=== PATIENT | female | born 1960 | race African-American/Black ===

== ENCOUNTER 2020-05-17 15:49 | Emergency (ER) | payer MEDICAID, OTHER ==
[2020-05-17] MEDS ORDERED: SODIUM CHLORIDE 0.9% 1000ML 1,000 ML IVS ONE (16:13)
[2020-05-17] MEDS ORDERED: VANCOMYCIN HCL INJ 1,000 MG in SODIUM CHLORIDE 0.9% 250ML 250 ML IVPB ONE (16:55)
[2020-05-17] MEDS ORDERED: PIPERACILLIN/TAZOBACTAM 4.5 GM in SODIUM CHLORIDE 0.9% 100ML 100 ML IVPB ONE (16:55)
--- NOTE | 2020-05-17 17:06 | ED.PDOC ---
History of Present Illness - General Chief Complaint: GI Problem Stated Complaint: rectal bleed Time Seen by Provider: 05/17/20 16:11 Additional Information: 59yo F presents from nursing facility with acute GI bleeding. Patient is medically complex including TBI, Hep C, DM, CVA, COPD, CHF, substance abuse and psych disorder. She is trached and poorly responsive at baseline per EMS report. Apparently, a full code. Per EMS, jail staff noted bight red blood in her diaper. EMS reports additional bleeding in route. Pt has remained normotensive during transport. No known hx of blood thinners per review of available documents and EMS report. No known hx of GI bleeding per available information. No report of recent illness. No other reported issues. Review of Systems - Review of Systems Unable to Obtain Due To: condition, dementia Family Medical History - Family History Mother Family History: No Known Physical Exam - Physical Exam General Appearance: Frail, Lethargic, Other - Distressed due to condition Eyes, Ears, Nose, Throat Exam: PERRL/EOMI, normal ENT inspection Neck: non-tender, supple Respiratory: lungs clear, normal breath sounds, other - Trach in place Cardiovascular/Chest: normal peripheral pulses, regular rate, rhythm, no edema Peripheral Pulses: No deficit Gastrointestinal/Abdominal: normal bowel sounds, soft, no organomegaly Rectal Exam: other - Grossly bloody stools Back Exam: normal inspection Extremity: non-tender, no pedal edema Neurologic: no motor/sensory deficits, other - Wakes to voice, poorly responsive to commands, no verbal communication. Skin Exam: normal color, warm/dry Progress - Progress Progress: DDX: GI bleed, anemia, renal failure, lyte disorder, hyperglycemia, hemorrhage, Sepsis, UTI, pneumonia, cirrhosis, trach complication, mass, varices. Airborne+ PPE used Patel Radha, 444 Critical Care: Unstable vital signs, life threatening condition, multiple conditions. 34 Minutes of care. 05/17/20 18:54 Critically ill. Pt with massive GI bleeding. Became hypotensive, blake-arrest. Hgb 6. IV access obtained via ultrasound guidance. A R femoral like was also placed under ultrasound guidance. Emergency transfusion was initiated. Pt additionally found to be in renal failure, hypernatremic and WBC 17 possibly representing infection. Sepsis protocol was also initiated. Requires higher level of care. Case discussed with ED physician on duty at [facility]. Accepts case. Initially asked for air ambulance, but not currently avail via two services due to weather. Pt left ED via ground EMS. 05/18/20 01:24 - Results/Orders Results/Orders: 05/17/20 16:05 TYPE AND SCREEN Stat 05/17/20 16:15 EKG STAT 05/17/20 16:56 BLOOD CULTURE Stat Laboratory Results - last 24 hr 05/17/20 05/17/20 05/17/20 16:05 16:05 16:05 WBC 17.9 H RBC 2.02 L Hgb 6.6 L* Hct 19.3 L MCV 95.6 MCH 32.5 H MCHC 34.0 RDW 19.6 H Plt Count 116 L MPV 9.4 Absolute Neuts (auto) 13.70 H Absolute Lymphs (auto) 2.40 Absolute Monos (auto) 1.20 H Absolute Eos (auto) 0.40 Absolute Basos (auto) 0.10 Neutrophils % 76.7 Lymphocytes % 13.7 L Monocytes % 6.9 Eosinophils % 2.1 Basophils % 0.6 Normal RBC Morphology Stain quality accept PT 13.2 H INR 1.33 H PTT (SP) Not Reportable Sodium 160 H* Potassium 2.7 L Chloride 110 Carbon Dioxide 30 Anion Gap 22.7 H BUN 379 H* Creatinine 3.50 H BUN/Creatinine Ratio 108.3 H Random Glucose 370 H Serum Osmolality Not Reportable Lactic Acid Calcium 9.5 Total Bilirubin 0.5 AST 65 H ALT 17 Alkaline Phosphatase 114 Serum Total Protein 8.4 H Albumin 1.1 L* Globulin 7.3 H Albumin/Globulin Ratio 0.2 L Patient ABO/Rh Antibody Screen Crossmatch 05/17/20 05/17/20 05/17/20 16:05 16:05 16:05 WBC RBC Hgb Hct MCV MCH MCHC RDW Plt Count MPV Absolute Neuts (auto) Absolute Lymphs (auto) Absolute Monos (auto) Absolute Eos (auto) Absolute Basos (auto) Neutrophils % Lymphocytes % Monocytes % Eosinophils % Basophils % Normal RBC Morphology PT INR PTT (SP) Sodium Potassium Chloride Carbon Dioxide Anion Gap BUN Creatinine BUN/Creatinine Ratio Random Glucose Serum Osmolality Lactic Acid 5.6 H* Calcium Total Bilirubin AST ALT Alkaline Phosphatase Serum Total Protein Albumin Globulin Albumin/Globulin Ratio Patient ABO/Rh Cancelled O POSITIVE Antibody Screen Cancelled Negative Crossmatch See Detail 05/17/20 17:27 WBC RBC Hgb Hct MCV MCH MCHC RDW Plt Count MPV Absolute Neuts (auto) Absolute Lymphs (auto) Absolute Monos (auto) Absolute Eos (auto) Absolute Basos (auto) Neutrophils % Lymphocytes % Monocytes % Eosinophils % Basophils % Normal RBC Morphology PT INR PTT (SP) Sodium Potassium Chloride Carbon Dioxide Anion Gap BUN Creatinine BUN/Creatinine Ratio Random Glucose Serum Osmolality Lactic Acid Calcium Total Bilirubin AST ALT Alkaline Phosphatase Serum Total Protein Albumin Globulin Albumin/Globulin Ratio Patient ABO/Rh Antibody Screen Crossmatch See Detail Last Vital Signs Temp 96.5 F L 05/17/20 18:00 Pulse 78 05/17/20 18:00 Resp 16 05/17/20 18:00 BP 105/67 05/17/20 18:00 Pulse Ox 98 05/17/20 18:00 - EKG/XRAY/CT EKG: Nicolás - 30, nl axis, nl intervals, nonspecific ST T wave Chg Comments: EKG obtained during hypotension episode. HR normalized with volume resus. Procedures - Central Line Right Femoral vein Central Line Lumen: triple Central Line Procedure Prep: betadine prep, sterile drapes applied, sterile dressing applied Anesthesia: Lidocaine cc's of anesthesia: 2 Complications: none Central Line Post Position: sutured, good blood return, position confirmed w/ CXR Progress: Placed with ultrasound guidance. Well tolerated without complication. Departure - Departure Clinical Impression: Hypotension due to blood loss, Anemia due to blood loss, acute, Hypernatremia, Lactic acidosis, Tracheostomy in place, Hyperglycemia due to diabetes mellitus, Hypokalemia, Dehydration, severe, Hemorrhage requiring transfusion GI bleed Qualifiers: GI bleed type/associated pathology: unspecified gastrointestinal hemorrhage type Qualified Code(s): K92.2 - Gastrointestinal hemorrhage, unspecified Acute renal failure Qualifiers: Acute renal failure type: unspecified Qualified Code(s): N17.9 - Acute kidney failure, unspecified Leukocytosis, unspecified Qualifiers: Leukocytosis type: unspecified Qualified Code(s): D72.829 - Elevated white blood cell count, unspecified Viral hepatitis C Qualifiers: Viral hepatitis chronicity: unspecified Hepatic coma status: without hepatic coma Qualified Code(s): B19.20 - Unspecified viral hepatitis C without hepatic coma Time of Disposition: 17:49 Disposition: Transfer to Hospital Condition: Serious Departure Forms: ED Discharge - Pt. Copy, Patient Portal Self Enrollment Referrals: RICHY CHRIS [Primary Care Provider] - 1-2 Weeks
--- NOTE | 2020-05-17 17:10 | RAD ---
XR ABDOMEN 1 VIEW (KUB) HISTORY: GI bleeding. COMPARISON: None. FINDINGS: There is a nonobstructive bowel gas pattern. Moderate amount of stool throughout the colon. No evidence of pneumoperitoneum. There are nonspecific calcifications in the pelvis. There is a right femoral line overlying the upper pelvis. IMPRESSION: Unremarkable bowel gas pattern. Electronically signed by: Damian Gallagher MD 05/17/2020 5:08 PM CDT
--- NOTE | 2020-05-17 17:11 | RAD ---
EXAM: XR Chest, 1 View CLINICAL HISTORY: The patient is 59 years old and is Female; Bleed tracheostomy tube TECHNIQUE: Single portable supine view of the chest. COMPARISON: May 16, 2020 screening for life. FINDINGS: Lungs: Airspace opacities in the right lung are slightly increased. Pleural space: No pleural effusion. No pneumothorax. Heart: Cardiomediastinal silhouette is not significantly changed given the differences in technique. Mediastinum: Mediastinal contours are altered due to rightward patient positioning. Bones/joints: No acute fracture visualized. The bones and joints are unchanged as visualized. Tubes, lines and devices: Tracheostomy tube noted. Upper abdomen: No free air in the visualized upper abdomen. IMPRESSION: Airspace opacities in the right lung are slightly increased. Electronically signed by: Yasmeen Quiñones MD 05/17/2020 5:09 PM CDT
[2020-05-17 18:02] VITALS: TEMP 96.5
[2020-05-17 18:13] VITALS: BP 105/67; O2SAT 98
== END 2020-05-17 17:40 | disposition short-term general hospital (02) ==
LOC: ER 15:49
DX: K92.2 Gastrointestinal hemorrhage, unspecified (principal); D72.829 Elevated white blood cell count, unspecified; N17.9 Acute kidney failure, unspecified; B19.20 Unspecified viral hepatitis C without hepatic coma; E87.0 Hyperosmolality and hypernatremia; D62 Acute posthemorrhagic anemia; E11.65 Type 2 diabetes mellitus with hyperglycemia; E86.0 Dehydration; E87.6 Hypokalemia; I95.9 Hypotension, unspecified; I11.0 Hypertensive heart disease with heart failure; I50.9 Heart failure, unspecified; J44.9 Chronic obstructive pulmonary disease, unspecified; Z93.0 Tracheostomy status
CPT/HCPCS: 36415; 71045; 74018; 80053; 83605; 85025; 85610; 85730; 86922; 87040; 93005; 94002; J7030; P9016

== ENCOUNTER → 2020-05-17 | Outpatient (CLI) | payer MEDICAID | LOC: GOCC 06:48 | PROVIDERS: ATTEND Internal Medicine | DX: L08.9 Local infection of the skin and subcutaneous tissue, unspecified (principal); T81.30XA Disruption of wound, unspecified, initial encounter ==

== ENCOUNTER 2020-06-19 22:18 | Emergency (ER) | payer OTHER ==
[2020-06-19] MEDS ORDERED: SODIUM CHLORIDE 0.9% (FLUSH) 10 ML SYG IV PRN (22:36)
[2020-06-19] MEDS ORDERED: SODIUM CHLORIDE 0.9% 1000ML 1,000 ML IVS ONE (22:40)
[2020-06-19] MEDS ORDERED: NOREPINEPHRINE BITARTRATE 4 MG in DEXTROSE 5% 250ML 250 ML IVPB SCH (23:00)
--- NOTE | 2020-06-19 23:10 | ED.PDOC ---
History of Present Illness - General Chief Complaint: Blood Pressure Problem Stated Complaint: HYPOTENSION AND BRADYCARDIA Time Seen by Provider: 06/19/20 22:29 Source: EMS, other - [facility] Exam Limitations: clinical condition - History of Present Illness Initial Comments: PEGGY LOUIS NOTICED PT HAD BRADYCARDIA (40'S) AND HYPOTENSION. SENT TO ER VIA EMS. PT IS CHRONIC TRACH VENT PT. CHRONIC COMATOSE/VEGETATIVE STATE, UNRESPONSIVE AT BASELINE. FULL CODE. JPEG. PICC LINE. CHRONIC ONTIVEROS. Severity: severe Allergies/Adverse Reactions: Allergies UNOBTAINABLE Allergy (Verified 05/17/20 20:48) Review of Systems - Review of Systems Unable to Obtain Due To: other - PERSISTENT VEGETATIVE STATE/CHRONICALLY COMATOSE. Past Medical History (General) - Patient Medical History Hx Stroke: Yes Hx Asthma: Yes Hx of COPD: Yes Hx Cardiac Disorders: Yes Hx Congestive Heart Failure: Yes Hx Hypertension: Yes Hx Diabetes: Yes Hx MRSA: Yes - Vaccination History Hx Influenza Vaccination: Yes - Female History Patient : No Family Medical History - Family History Mother Family History: No Known Physical Exam - Physical Exam General Appearance: Well Hydrated Eyes, Ears, Nose, Throat Exam: TMs normal, pharynx normal, other - TRACHEOSTOMY TUBE CLEAN AND IN TACT. Neck: supple, normal inspection Respiratory: lungs clear, normal breath sounds, no respiratory distress, no accessory muscle use Cardiovascular/Chest: no murmur, bradycardia Peripheral Pulses: radial,right: 1+, radial,left: 1+ Gastrointestinal/Abdominal: normal bowel sounds, non tender, soft, no pulsatile mass Extremity: non-tender, normal inspection, no pedal edema Neurologic: other - NO FACIAL DROOP Skin Exam: normal color, warm/dry Lymphatic: no adenopathy Progress - Progress Progress: 06/19/20 23:03 ABC'S: AIRWAY: PT BREATHING COMFORTABLY THROUGH VENT. NO RETRACTIONS. NO LABORED BREATHING. BREATHING: LUNGS CTAB, NO C/R/W, JUST APPROPRIATE TRACH/VENT SOUNDS. CIRCULATION: STRONG PULSES. HOTN AND BRADYCARDIA. HOTN 95/47 (MAP 63), PULSE 50. THUS I STARTED LEVOPHED 5 MCG/MIN. VS IMPROVED TO 110/56, PULSE 94. I AM WORRIED ABOUT HER DECOMPENSATING FURTHER WITH HER BRADYCARDIA, HYPOTENSION, AND HER EKG AND RHYTHM STRIPS FLUCTUATE BETWEEN A FLUTTER, BIGEMINY, NSR. NO VENTRICULAR FIB/TACH. NOTE: PT HAS NOT BEEN CODED TODAY/TONIGHT BY EMS OR ER. CRITICAL LABS SO FAR - HGB 7.0. THUS ORDERED TO TRANSFUSE 2 UNITS PRBC. THIS WILL ALSO HELP HER HYPOTENSION. WBC 21. 06/19/20 23:11 SIMULTANEOUS NS BOLUSES ARE RUNNING THOUGH PICC LINE AND PERIPHERAL IV. 102/55, MAP 70. PULSE 115. 06/19/20 23:33 HYPERKALEMIA (7.8) WITH CARDIAC IRREGULARITIES, THUS IT IS CONSIDERED A HYPERKALEMIC EMERGENCY AND I AM INITIATING RAPIDLY ACTING THERAPIES TO HELP DECR THE POTASSIUM LEVEL AND STABIZE THE CARDIAC MEMBRANE - IV CALCIUM, INSULIN, AND 50 meq BICARBONATE (SMALL DOSE, TO NOT FURTHER INCREASE THE HYPERNATREMIA). 06/20/20 00:10 STARTING 3RD BOLUS IV. 102/51, MAP 70. PULSE 115. 06/20/20 00:32 CXR RIGHT PNE. NO ABX ALLERGIES. STARTING ZOSYN (RENALLY DOSED FROM 4.5 g DOWN TO 2.25 g DUE TO HER SEVERE ARF) FOR VENTILATOR ACQUIRED PNE. 06/20/20 01:11 REPEAT EKG NOW SHOWS NSR. 06/20/20 02:04 HYPOTENSION - GAVE 3 L NS. MAP IMPROVED. BRADYCARDIA - RESOLVED WITH LEVOPHED DRIP. PNE, LEUKOCYTOSIS - GAVE FIRST DOSE ZOSYN. UTI ANEMIA - ETX UNCLEAR. GIVING 2 UNITS PRBC. ACUTE VS CHRONIC RENAL FAILURE - IVF. MAY REQUIRE DIALYSIS AT RECEIVING HOSPITAL. CHF HYPERKALEMIA - ABOVE MEASURE TAKEN, WHICH NORMALIZED THE EKG FROM AFIB TO NSR. COVID TEST PENDING. UNIFYING ETX: SEPSIS (PNE, UTI), RESULTING IN HYPOTENSION, RENAL FAILURE, CHF. PT IS NOW STABLE FOR TRANSFER. I SPOKE WITH DR. BHARATH FINLEY, [facility], WHO ACCEPTED TRANSFER. WILL USE CARE FLIGHT TO EXPEDITE DUE TO HER NUMEROUS COMORBIDITIES. THANK YOU, DR. FINLEY. NOTE: PT IS FULL CODE. 06/20/20 02:11 06/20/20 02:16 06/20/20 02:18 Departure - Departure Clinical Impression: Bradycardia, Dehydration, Hypernatremia, Hyperkalemia, Metabolic acidosis Hypotension Qualifiers: Hypotension type: unspecified hypotension type Qualified Code(s): I95.9 - Hypotension, unspecified CHF (congestive heart failure) Qualifiers: Heart failure type: unspecified Heart failure chronicity: unspecified Qualified Code(s): I50.9 - Heart failure, unspecified Pneumonia involving right lung Qualifiers: Pneumonia type: due to unspecified organism Lung location: unspecified part of lung Qualified Code(s): J18.9 - Pneumonia, unspecified organism Leukocytosis Qualifiers: Leukocytosis type: unspecified Qualified Code(s): D72.829 - Elevated white blood cell count, unspecified Anemia Qualifiers: Anemia type: other cause Other causes of anemia: other cause, not classified Qualified Code(s): D64.89 - Other specified anemias CRF (chronic renal failure) Qualifiers: Chronic kidney disease stage: unspecified stage Qualified Code(s): N18.9 - Chronic kidney disease, unspecified Sepsis Qualifiers: Sepsis type: sepsis due to unspecified organism Sepsis acute organ dysfunction status: with acute organ dysfunction Severe sepsis acute organ dysfunction type: acute renal failure Acute renal failure type: unspecified Severe sepsis shock status: with septic shock Qualified Code(s): A41.9 - Sepsis, unspecified organism; R65.21 - Severe sepsis with septic shock; N17.9 - Acute kidney failure, unspecified Disposition: Transfer to Hospital Condition: Serious Departure Forms: ED Discharge - Pt. Copy, Patient Portal Self Enrollment Instructions: DI for High Blood Pressure Referrals: RICHY CHRIS [Primary Care Provider] - 1-2 Weeks Transfer to Outside Facility - Transfer Information Decision to Transfer Date: 06/20/20 Decision to Transfer Time: 01:22 Reason for Transfer: specialized care not available Accepting Provider:: DR. BHARATH FINLEY Accepting Facility: [facility]
--- NOTE | 2020-06-19 23:17 | RAD ---
EXAM DESCRIPTION: Chest,1 View CLINICAL HISTORY: ACUTE BRADYCARDIA HYPOTENSION. CHRONIC VENT PT. COMPARISON: 05/17/2020 FINDINGS: Single frontal view of the chest. Tubes and lines: Tracheostomy. Leads overlie the chest. Cardiomediastinal silhouette: Heart is not enlarged. Lungs: Low lung volumes. No pneumothorax. Possible small right pleural effusion. Persistent right lung airspace opacities with mild interval increase in left perihilar opacity. Bones: Degenerative change of the spine and shoulders. Upper abdomen: No acute findings. IMPRESSION: 1. Persistent right lung airspace opacity and interval increase in left perihilar opacity may represent worsening pneumonic process. Possible small right pleural effusion. Electronically signed by: Mika Arthur 06/19/2020 11:15 PM CDT
[2020-06-19] MEDS ORDERED: CALCIUM GLUCONATE INJ 1 GM in SODIUM CHLORIDE 0.9% 50ML 50 ML IVPB ONE (23:48)
[2020-06-19] MEDS ORDERED: INSULIN, REG.(HUMAN) 100 U/ML VIAL SUBCU ONE ×2 (23:50→23:57)
[2020-06-19] MEDS ORDERED: SODIUM BICARBONATE VIAL 50 MEQ/50 ML VIAL IV ONE (23:58)
[2020-06-20] MEDS ORDERED: PIPERACILLIN/TAZOBACTAM 2.25 GM in SODIUM CHLORIDE 0.9% 50ML 50 ML IVPB ONE (00:34)
[2020-06-20 02:12] VITALS: TEMP 97
[2020-06-20 02:20] VITALS: O2SAT 94
[2020-06-20 03:56] VITALS: BP 101/57
[2020-06-20] MEDS ORDERED: SODIUM CHLORIDE 0.9% 1000ML 1,000 ML IVS ONE ×2 (23:45)
== END 2020-06-20 03:35 | disposition short-term general hospital (02) ==
LOC: ER 22:18
DX: R00.1 Bradycardia, unspecified (principal); E86.0 Dehydration; J18.9 Pneumonia, unspecified organism; I95.9 Hypotension, unspecified; D72.829 Elevated white blood cell count, unspecified; E87.5 Hyperkalemia; E87.2 Acidosis; D64.89 Other specified anemias; A41.9 Sepsis, unspecified organism; R65.21 Severe sepsis with septic shock; N18.9 Chronic kidney disease, unspecified; I13.0 Hypertensive heart and chronic kidney disease with heart failure and stage 1 through stage 4 chronic kidney disease, or unspecified chronic kidney disease; I50.9 Heart failure, unspecified; E11.22 Type 2 diabetes mellitus with diabetic chronic kidney disease; J44.9 Chronic obstructive pulmonary disease, unspecified; Z86.73 Personal history of transient ischemic attack (TIA), and cerebral infarction without residual deficits; Z93.0 Tracheostomy status
CPT/HCPCS: 36415; 36600; 71045; 80053; 81001; 82803; 82805; 83605; 83880; 85025; 85610; 85730; 86922; 87040; 87086; 87088; 87186; 87635; 93005; 94002; 94770; A4216; J2543; J7030; J7060; P9016